=== PATIENT | male | born 1985 | race Caucasian/White ===

== ENCOUNTER 2021-11-05 16:12 | Emergency (ER) | payer OTHER, SELFPAY ==
[2021-11-05 16:21] VITALS: BP 165/67; PULSE 101; RESP 20; TEMP 38.4; O2SAT 100; BMI 28.1
--- NOTE | 2021-11-05 17:01 | ED.URI ---
HPI - URI/Sore Throat General Chief Complaint: Upper Respiratory Symptoms Stated Complaint: COVID + HEADACHE FEVER BODY ACHES Time Seen by Provider: 11/05/21 16:23 Source: patient Mode of arrival: Ambulatory History of Present Illness HPI Narrative: Patient is a 36-year-old male with no past medical history who presents today with positive COVID test. He started having symptoms for the last 24 hours. He said he had 2 vaccinations and actually had COVID last year. He is having headache he feels like he is having trouble getting words out he thought he was having trouble walking. Some of this seems to be resolved. He took [id number] of [employer] cold medicine which had Tylenol dextromethorphan and and phenylephrine he then developed hives. He says every time he takes pain medication he gets hives. He at no time had lip swelling tongue swelling or difficulty breathing. His highs has been resolved. He is fairly confident this is happen with ibuprofen as well. He overall does not feel great he does not have a sore throat he does not have significantly shortness breath who feel like his face is hot his body is cold he generally feels unwell. Related Data Previous Rx's Medication Instructions Recorded nirmatrelvir 300 mg (150 mg x See Rx Instructions PO .COMPLEX 11/05/21 2)-ritonavir 100 mg tablet (EUA) #30 tabs (Paxlovid 300 mg () Allergies Allergy/AdvReac Type Severity Reaction Status Date / Time acetaminophen Allergy Hives Verified 11/05/21 16:26 dextromethorphan Allergy Hives Verified 11/05/21 16:26 phenylephrine Allergy Hives Verified 11/05/21 16:26 Review of Systems Review of Systems Narrative: GENERAL: See HPI HEENT: Denies sinus pain, ear pain, sore throat, difficulty swallowing, neck pain RESPIRATORY: Denies dyspnea, cough, wheezing, hemoptysis, sputum. CARDIOVASCULAR: Denies chest pain, palpitations, orthopnea, edema GASTROINTESTINAL: Denies nausea, vomiting, abdominal pain, diarrhea, constipation, melena. : Denies dysuria, frequency, incontinence, hematuria, urinary retention, flank pain. MUSCULOSKELETAL: Denies weakness, joint pain, or bony pain SKIN: No rash, no erythema, no pruritus NEUROLOGIC: See HPI PSYCHIATRIC: No concerning psychosocial issues. 12 point review of systems is negative except for those stated above and HPI Patient History Social History Smoking Status: Never smoker Smoking Status: Never smoker Substance Use Type: does not use Exam Initial Vital Signs Initial Vital Signs: Vital Signs Temperature 101.2 F H 11/05/21 16:21 Pulse Rate 101 H 11/05/21 16:21 Respiratory Rate 20 11/05/21 16:21 Blood Pressure 165/67 H 11/05/21 16:21 Pulse Oximetry 100 11/05/21 16:21 Oxygen Delivery Method 11/05/21 16:21 GENERAL: 36-year-old male appears to not feel well HEENT: Head atraumatic,EOMI, pupils reactive, face symmetric, moist mucous membranes, neck supple no meningeal signs CARDIOVASCULAR: Regular rate and rhythm without murmurs, rubs or gallops. RESPIRATORY: Breath sounds equal bilaterally, no wheezes rales or rhonchi. ABDOMEN: Soft, nontender. Normoactive bowel sounds all 4 quadrants. No guarding or rebound. EXTREMITIES: Normal range of motion, no clubbing or edema. Neurovascularly intact NEUROLOGICAL: Alert and oriented x4.Normal gait and speech. Cranial nerves II through XII grossly intact. Good [id number], good [id number], strength equal bilaterally, no dysarthria or aphasia, sensation in tact to soft touch bilaterally, no visual changes, no facial droop SKIN: Warm, dry, no laceration, no petechiae, no rashes or lesions. No hives appreciated Scores NIH Stroke Scale Level of Conciousness: Alert, keenly responsive Ask month/age: Answers both questions correctly. Open/close eyes, close hand: Performs both tasks correctly Best gaze horizontal: Normal Visual calabrese: No visual loss Facial palsy: Normal symetrical movement Left arm drift: No drift for full 10 sec Right arm drift: No drift for full 10 sec Left leg drift: No drift for full 5 sec Right leg drift: No drift for full 5 sec Limb ataxia: Absent Sensory on face/arms/legs: Normal, no sensory loss Best language: No aphasia, normal Dysarthria: Normal Extinction or inattention: No abnormality Total NIH Stroke scale score: 0 Course Orders Ordered: Discontinued Medications Acetaminophen (Acetaminophen 325 Mg Tablet) 975 mg PO NOW ONE Stop: 11/05/21 17:02 Last Admin: 11/05/21 17:05 Dose: 975 mg Documented By: LUCINA Vital Signs Vital signs: Vital Signs - 8 hr 11/05/21 16:21 Temperature 101.2 F H Pulse Rate 101 H Respiratory Rate 20 Blood Pressure 165/67 H Pulse Oximetry 100 Oxygen Delivery Method Room Air MDM - URI/Sore Throat MDM Narrative Medical decision making narrative: Patient has a fever is unclear what he is allergic to. Will try another dose of Tylenol here and monitor him. I suspect his headache and issues are probably due to fever and COVID. His NIH is 0. He really has no meningeal signs. He is febrile and mildly tachycardic in the ED. patient is given Tylenol in the emergency department without any reaction. Overall feeling significantly better. No history of kidney issues will prescribed Paxlovid. Discharge Plan Departure Patient Disposition: Home Clinical Impression: COVID-19 Instructions: DI for COVID-19 (Suspected or Confirmed ) Activity Restrictions/Additional Instructions: *You have been diagnosed with COVID *What to do: Increase fluid intake, treat fever *Continue to take medications as directed Tylenol 1000 mg every 6hours if needed for pain or fever Paxlovid take as directed--> sent to [facility] an adequate *Follow up with your primary care provider in 2-3 days or call [phone] *Return to ER if you should have increasing headache, oxygen less than 90%, not tolerating fluids or any new, worsening or concerning symptoms Prescriptions: New Paxlovid (EUA) 150 mg x 2- 100 mg tablet See Rx Instructions PO .COMPLEX Qty: 30 0RF Rx Instructions: take TWO 150 mg tablets of nirmatrelvir with ONE 100 mg tablet of ritonavir twice daily for 5 days Visit Report Forms: Patient Portal/API
[2021-11-05] MEDS: ACETAMINOPHEN 325 MG TABLET 975 MG PO (17:05)
[2021-11-05 18:35] VITALS: RESP 108; O2SAT 97
[2021-11-05 18:37] VITALS: BP 121/58; PULSE 92; O2SAT 94
== END 2021-11-05 18:37 | disposition home or self-care (01) ==
PROVIDERS: Emergency Provider Emergency Medicine
DX: U07.1 COVID-19 (principal)
CPT/HCPCS: 99282; 99283